=== PATIENT | male | born 1985 | race Caucasian/White ===

== ENCOUNTER 2018-05-26 16:09 | Outpatient (CLI) | payer OTHER ==
[2018-05-26 17:10] LABS: #Lymphocytes 2.1 thou/uL (1.20-3.40); #Monocytes 0.5 thou/uL (0.11-0.59); #Neutrophils 4.7 thou/uL (1.40-6.50); %Basophils 0.2 % (0.0-1.0); %Eosinophils 0.4 % (0.0-10.0); %Neutrophils 63.3 % (42.0-75.0); Hemoglobin 15.8 g/dL (14.0-18.0); Mean Corpuscular Hemoglobin 27.8 pg (27.0-31.0); Mean Corpuscular Volume 81.8 fL (78.0-98.0); Mean Platelet Volume 7.8 fL (7.4-10.4); Platelet Count 223 thou/uL (130-400); RBC Distribution Width 12.9 % (11.5-14.5); Red Blood Cell (RBC) Count 5.66 mill/uL (4.70-6.10); White Blood Cell (WBC) Count 7.4 thou/uL (4.8-10.8)
[2018-05-26 17:32] LABS: ALT (SGPT) 109 U/L (8-55); AST (SGOT) 199 U/L (5-34); Albumin 4.5 g/dL (3.5-5.0); Alkaline Phosphatase 53 U/L (40-150); Anion Gap 14 mmol/L (10-20); BUN (Urea Nitrogen) 15 mg/dL (8.9-20.6); Bilirubin, Total 0.7 mg/dL (0.2-1.2); Calc. Creatinine Clearance 0 mL/min (70-130); Carbon Dioxide 22 mmol/L (22-29); Chloride 107 mmol/L (98-107); Estimated GFR-MDRD 66; Globulin 2.9 g/dL (2.4-3.5); Glucose 88 mg/dL (70-105); Potassium 4.4 mmol/L (3.5-5.1); Protein, Total 7.4 g/dL (6.0-8.3); Sodium 139 mmol/L (136-145)
== END 2018-05-26 16:10 | disposition home or self-care (01) ==
LOC: LABBT 16:09
PROVIDERS: ATTEND Surgery
DX: Z01.812 Encounter for preprocedural laboratory examination (principal); K42.9 Umbilical hernia without obstruction or gangrene; K43.9 Ventral hernia without obstruction or gangrene
CPT/HCPCS: 80053; 85025

== ENCOUNTER 2018-05-28 09:51 | Day surgery (SDC) | payer OTHER ==
[2018-05-26 16:36] VITALS: BMI 38.4
[2018-05-28] MEDS ORDERED: Fentanyl 250 MCG/5 ML VIAL ONE (10:31)
[2018-05-28] MEDS ORDERED: Lidocaine 2% Jelly 5 ML TUBE ONE (10:31)
[2018-05-28] MEDS ORDERED: Midazolam HCl 2 mg/2 ml Vial ONE (10:31)
[2018-05-28] MEDS ORDERED: Bupivacaine/Epinephrine 0.25% 30 ML VIAL ONE (10:32)
[2018-05-28] MEDS ORDERED: CEFAZOLIN 2 GM/50 ML BAG ONE (10:41)
[2018-05-28] MEDS ORDERED: Fentanyl 100 MCG/2 ML VIAL ONE ×3 (12:03→12:52)
[2018-05-28] MEDS ORDERED: Ondansetron HCl/PF 4 MG/2 ML Vial IVP PRN (12:39)
[2018-05-28] MEDS ORDERED: Promethazine HCl 25 MG/ML VIAL IM/IV PRN (12:39)
[2018-05-28] MEDS ORDERED: HYDROmorphone 2 MG/ML VIAL ONE (13:13)
--- NOTE | 2018-05-28 13:29 | OP ---
DATE OF PROCEDURE: 05/28/2018 PREOPERATIVE DIAGNOSIS: Ventral hernia. PROCEDURE PERFORMED: Laparoscopic ventral hernia repair with mesh. INDICATIONS: This is a 32-year-old male, who has an enlarging bulge in his umbilicus causing discomfort. FINDINGS: He actually had three defects around the umbilicus, one was probably the umbilical hernia, two epigastric hernias, total size would be 2 cm in width by 5 cm in length, 15 x 15 cm round mesh used to repair. DESCRIPTION OF PROCEDURE: After informed consent was obtained, the patient was taken to the operating room and given general endotracheal anesthesia, placed in supine position. Abdomen was prepped and draped in usual fashion. Local anesthesia infiltrated subcutaneously and deep, and a 12 mm incision was performed in the right flank. A Veress needle inserted. Drop test performed. Pneumoperitoneum was created to a volume of 2 L of carbon dioxide. Utilizing a bladeless 12 mm trocar and 0-degree laparoscope, direct visual entry into the abdominal cavity was performed. Pneumoperitoneum was then created to a pressure of 15 mmHg and two 5 mm ports were placed on the right lateral abdomen. The hernia was reduced. Some of it was able to be reduced just manually and then did have to dissect around the edges with the LigaSure to free it up and further dissect the rest of the hernia contents. Once the hernias were empty, there were actually three holes that were about 5 cm in longitudinal length and 2 cm in width. This defect was closed with two running 0 V-Loc PDS sutures tied intracorporeally. Then, the repair was buttressed utilizing a 15 x 15 cm piece of Proceed mesh. Four 0 Ethibond were placed in four quadrants. It was hydrated, rolled, and inserted intra-abdominally, then unrolled. Using the GraNee needle, the sutures were individually grasped to optimally position the mesh to cover the defect. These were tied down and the mesh further secured with the SecureStrap Tacker. Mesh positioning was done under a lower pressure of 10 mmHg. Hemostasis assured. The abdomen was decompressed. Trocars and retractors were removed. Skin closed with interrupted 4-0 Rapide. Dermabond applied. The patient tolerated the procedure well, transferred to Recovery in good condition. Sponge and needle count verified correct x2. Job ID: [id number]
[2018-05-28] MEDS ORDERED: Dexamethasone 20 MG/5 ML VIAL ONE (14:16)
[2018-05-28] MEDS ORDERED: Glycopyrrolate 0.2 MG/ML 5 ML SYRINGE ONE (14:16)
[2018-05-28] MEDS ORDERED: Ondansetron PF 4 MG/2 ML Vial ONE (14:16)
[2018-05-28] MEDS ORDERED: Lidocaine 1% PF 5 ML VIAL ONE (14:16)
[2018-05-28] MEDS ORDERED: PROPOFOL 200 MG/20 ML VIAL ONE (14:16)
[2018-05-28] MEDS ORDERED: Rocuronium Bromide 10 MG/ML (10ML VIAL) ONE (14:16)
[2018-05-28] MEDS ORDERED: HYDROcodone/Acetaminophen 5/325 mg Tablet ONE (14:31)
== END 2018-05-28 16:25 | disposition home or self-care (01) ==
LOC: SDC 09:51
PROVIDERS: ATTEND Surgery
PROC: 0WUF4JZ Supplement Abdominal Wall with Synthetic Substitute, Percutaneous Endoscopic Approach (ICD-10-PCS; principal; 2018-05-28)
DX: K43.9 Ventral hernia without obstruction or gangrene (principal); K42.9 Umbilical hernia without obstruction or gangrene; F17.210 Nicotine dependence, cigarettes, uncomplicated; Z79.899 Other long term (current) drug therapy
CPT/HCPCS: 96374; J1100; J1170; J2001; J2250; J2405; J2704; J3010

== ENCOUNTER 2018-09-18 15:17 | Outpatient (CLI) | payer OTHER ==
--- NOTE | 2018-09-18 16:56 | ULT ---
TESTICULAR ULTRASOUND: 09/18/18 HISTORY: Right sided testicular pain. COMPARISON: None. TECHNIQUE: Fallon scale, color flow, Doppler imaging with spectral waveform analysis performed in the left and rig ht testicle. FINDINGS: RIGHT HEMISCROTUM: Slight heterogeneity of the right testicle is noted. Component of edema cannot be excluded. There are no intratesticular masses. Right testicle measures 2.7 x 3.5 x 4.5 cm. There are anechoic foci in th e right epididymis, compatible with cysts. The largest cyst measures 0.4 cm. Overall, the epididymis measures 1.1 x 1.3 x 1.7 cm. There is no fluid in the right hemiscrotum. LEFT HEMISCROTUM: Slight heterogeneity of the testicle echotexture likely due to edematous change. No masses. Left test icle measures 2.6 x 3.6 x 4.5 cm. Anechoic focus associated with the left epididymis measures 0.7 cm, likely representing an epididymal cyst. Overall, the epididymis measures 0.9 x 1.2 x 1.0 cm. There i s no significant fluid in the left hemiscrotum. TESTICULAR DOPPLER: There is symmetric vascular flow to the left and right testicle. IMPRESSION: 1. Mild heterogeneity with regards to the echotexture of both testicles suggesting components of edema. Findings are nonspecific. No definite increased vascularity to suggest orchitis. Correlate cl inically. Continue surveillance is warranted. 2. Bilateral epididymal cysts. POS: [facility]
== END 2018-09-18 15:18 | disposition home or self-care (01) ==
LOC: SCSULT 15:17
PROVIDERS: ATTEND Family Medicine
DX: N50.811 Right testicular pain (principal); N50.3 Cyst of epididymis
CPT/HCPCS: 76870; 93976